=== PATIENT | female | born 1985 | race Caucasian/White ===

== ENCOUNTER 2020-02-02 09:28 | Emergency (ER) | payer SELFPAY ==
[~2020-02-02] VITALS: Ht 149.9 cm; Wt 43.0 kg
--- NOTE | 2020-02-02 10:06 | PHYS DOC ---
Past Medical History Past Medical History: Other Additional Past Medical Histor: ADHD Past Surgical History: , Other Additional Past Surgical Histo: ABD/PELVIC MESH?? PT POOR HISTORIAN Smoking Status: Current Every Day Smoker Additional Information: "3 PACKS A DAY" Alcohol Use: Occasionally Additional Information: "A BEER EVERY 4 DAYS" General Adult EDM: Chief Complaint: HAND PROBLEM HPI: HPI: Patient is a 34 year old female who presents with a 2-day history of right finger pain and swelling. Patient denies any history of trauma. Patient denies measurable fever. Patient has had history of methamphetamine abuse but denies shooting into her fingers. Patient has also dysuria and burning with urination. Pain is worse with range of motion and better with rest. Review of Systems: Review of Systems: Constitutional: Denies fever or chills. [] Eyes: Denies change in visual acuity. [] HENT: Denies nasal congestion or sore throat. [] Respiratory: Denies cough or shortness of breath. [] Cardiovascular: Denies chest pain or edema. [] GI: Denies abdominal pain, nausea, vomiting, bloody stools or diarrhea. [] : Complains of dysuria Musculoskeletal: Denies back pain but has right ring finger pain Integument: Denies rash. [] Neurologic: Denies headache, focal weakness or sensory changes. [] Endocrine: Denies polyuria or polydipsia. [] Lymphatic: Denies swollen glands. [] Psychiatric: Denies depression or anxiety. [] Heart Score: Risk Factors: Risk Factors: DM, Current or recent (<one month) smoker, HTN, HLP, family hi story of CAD, obesity. Risk Scores: Score 0 - 3: 2.5% MACE over next 6 weeks - Discharge Home Score 4 - 6: 20.3% MACE over next 6 weeks - Admit for Clinical Observation Score 7 - 10: 72.7% MACE over next 6 weeks - Early Invasive Strategies Allergies: Allergies: Allergies Coded Allergies Type Severity Reaction Last Updated Verified No Known Drug Allergies 02/02/20 No Physical Exam: PE: Constitutional: Disheveled, no acute distress, non-toxic appearance. [] HENT: Normocephalic, atraumatic, bilateral external ears normal, no trismus, nose normal. [] Eyes: PERRLA, EOMI, conjunctiva normal, no discharge. [] Neck: Normal range of motion, no tenderness, supple, no stridor. [] Cardiovascular:Heart rate regular rhythm, peripheral pulses intact, cap refill brisk Lungs & Thorax: Bilateral breath sounds clear, no respiratory distress Abdomen: Bowel sounds normal, soft, no tenderness, no masses, no pulsatile masses. [] Skin: Warm, dry, no erythema, no rash. [] Back: No tenderness, no CVA tenderness. [] Extremities: Blisters to the middle phalanx of the dorsum of the right ring finger with mild associated swelling distally. Cap refill brisk, neurovascular intact distally. Neurologic: Alert and oriented X 3, normal motor function, normal sensory function, no focal deficits noted. [] Psychologic: Affect normal, judgement normal, mood normal. [] Current Patient Data: Vital Signs: Vital Signs Date Time Temp Pulse Resp B/P (MAP) Pulse Ox O2 Delivery O2 Flow Rate FiO2 02/02/20 09:44 98.4 99 20 150/92 (111) 99 Room Air 98.4 EKG: EKG: [] Radiology/Procedures: Radiology/Procedures: [][facility] [address] [place] [address] IMAGING REPORT Signed PATIENT: MATT GALINDO ACCOUNT: [id number] : 1985 LOCATION: ER AGE: 34 SEX: F EXAM STATUS: PRE ER ORD. PHYSICIAN: ZAID MEDLEY MD REASON: right 4th finger swelling, possible metal inside PROCEDURE: HAND RIGHT 3V Three-view right hand study Clinical indications: Fourth finger swelling. FINDINGS: Diffuse soft tissue swelling of the fourth digit is seen. No acute fracture or dislocation or lytic process is evident. No metallic or radiopaque foreign body is evident. IMPRESSION: No acute osseous abnormality. Electronically signed by: Adama Figueroa MD (02/02/2020 10:51 AM) [id number] DICTATED and SIGNED BY: ADAMA FIGUEROA MD DATE: 02/02/20 1051 Course & Med Decision Making: Course & Med Decision Making Pertinent Labs and Imaging studies reviewed. (See chart for details) [] 34-year-old female arrives via EMS with right ring finger pain. There is some swelling noted primarily on the middle phalanx on the dorsal side. No evidence of flexor tenosynovitis. X-ray was negative for fracture or foreign bodies. Patient also has UTI symptoms. Patient was placed on Bactrim to cover skin infection as well as UTI. Discussed with patient returning if symptoms worsen and discussed with symptoms of flexor tenosynovitis. There is no drainable abscess at this time. Dragon Disclaimer: Dragon Disclaimer: This electronic medical record was generated, in whole or in part, using a voice recognition dictation system. Departure Departure Impression: Primary Impression: Cellulitis of right ring finger Disposition: HOME, SELF-CARE Condition: STABLE Referrals: JOE MCINTYRE II, MD 2-3 DAYS Patient Instructions: Cellulitis Additional Instructions: EMERGENCY DEPARTMENT GENERAL DISCHARGE INSTRUCTIONS THANK YOU for coming to [facility] Emergency Department (ED) today and trusting us with your care. We trust that you had a positive experience in our Emergency Department. If you wish to speak to the department Management you can contact the fire department battalion chief at . YOUR FOLLOW UP INSTRUCTIONS ARE FOLLOWS: Do you have a private doctor? If you do not have a private doctor, please ask for a resource list of physicians or clinics that may be able to assist you with follow up care. The Emergency Physician has interpreted your x-rays. The X-ray specialist will also review them. If there is a change in the findings you will be notified in 48 hours when at all possible. A lab test or lab culture may have been done, your results will be reviewed and you will be notified if you need a change in treatment. ADDITIONAL INSTRUCTIONS AND INFORMATION Your care today has been supervised by a physician who is specially trained in emergency care. Many problems require more than one evaluation for a complete diagnosis and treatment. We recommend that you schedule your follow up appointment as recommended to ensure complete treatment of your illness or injury. If you are unable to obtain follow up care and continue to have a problem, or if your condition worsens we recommend that you return to the ED. We are not able to safely determine your condition over the phone nor are we able to give sound medical advice over the phone. For these safety reasons, if you call for medical advice we will ask you to come to the ED for further evaluation If you have any questions regarding these discharge instructions please call the ED at . SAFETY INFORMATION In the interest of safety, wellness, and injury prevention; we encourage you to wear your seatbelt, if you smoke; quit smoking, and we encourage your family to use protective helmet for bicycling and other sporting events that present an increased risk for head injury. IF YOUR SYMPTOMS WORSEN OR NEW SYMPTOMS DEVELOP, OR YOU HAVE CONCERNS ABOUT YOUR CONDITION; OR IF YOUR CONDITION WORSENS WHILE YOU ARE WAITING FOR YOUR FOLLOW UP APPOINTMENT; EITHER CONTACT YOUR PRIMARY CARE DOCTOR, THE PHYSICIAN WHOSE NAME AND NUMBER YOU WERE GIVEN, OR RETURN TO THE ED IMMEDIATELY. Return to the ER or the nearest ER if the swelling in the right ring finger becomes worse or progresses into the hand Scripts Sulfamethoxazole/Trimethoprim (BACTRIM DS TABLET) 1 Each Tablet 1 TAB PO BID for 10 Days, #20 TAB 0 Refills Prov: ZAID MEDLEY MD 02/02/20 Justicifation of Admission Dx: Justifications for Admission: Justification of Admission Dx: N/A ZAID MEDLEY MD Feb 02, 2020 10:06
[2020-02-02] MEDS ORDERED: DIPH,PERTUSS(ACELL),TET VAC/PF 0.5 ML SYRINGE. VAX IM ONE (10:15)
--- NOTE | 2020-02-02 10:54 | RAD ---
Three-view right hand study Clinical indications: Fourth finger swelling. FINDINGS: Diffuse soft tissue swelling of the fourth digit is seen. No acute fracture or dislocation or lytic process is evident. No metallic or radiopaque foreign body is evident. IMPRESSION: No acute osseous abnormality. Electronically signed by: Jose Figueroa MD (02/02/2020 10:51 AM) [id number]
[2020-02-02 11:10] LABS: BILIRUBIN,URINE NEGATIVE (NEG); CLARITY,URINE CLOUDY; COLOR,URINE YELLOW; NITRITE,URINE NEGATIVE (NEG); PH,URINE 7.5 (<5.0-8.0); PROTEIN,URINE NEGATIVE (NEG-TRACE)
[2020-02-02 11:24] LABS: BACTERIA,URINE FEW /HPF (0-FEW); SQUAMOUS EPITHELIAL CELL,UR MANY /LPF; TRICHOMONAS,URINE PRESENT
[2020-02-02] MEDS ORDERED: SULF1TAB24 PO (12:33)
[2020-02-02 13:01] VITALS: BP 141/84
== END 2020-02-02 13:04 | disposition home or self-care (01) ==
LOC: ER 09:28
DX: B00.89 Other herpesviral infection (principal); R30.0 Dysuria; M79.644 Pain in right finger(s); F17.200 Nicotine dependence, unspecified, uncomplicated; Z98.890 Other specified postprocedural states
CPT/HCPCS: 73130; 81001; 81025; 87086; 90471; 90715; 99284

== ENCOUNTER 2020-02-06 15:53 | Emergency (ER) | payer SELFPAY ==
[~2020-02-06] VITALS: Ht 142.2 cm; Wt 40.0 kg
[~2020-02-06 15:53] MED LIST: SULF1TAB24 PO
[2020-02-06] MEDS ORDERED: NORMAL SALINE IV SCH (16:48)
[2020-02-06] MEDS ORDERED: VANCOMYCIN PER PHARMACY MC ONE (17:00)
[2020-02-06] MEDS ORDERED: MORPHINE SULFATE 4 MG/ML VIAL. IV/SQ PRN (17:00)
[2020-02-06] MEDS ORDERED: PIPERACILLIN/TAZOBACTAM 4.5 GM in IV NORMAL SALINE 100ML 100 ML IV ONE (17:00)
[2020-02-06] MEDS ORDERED: VANCOMYCIN 1 GM in IV NORMAL SALINE 250ML 250 ML IV ONE (17:00)
[2020-02-06 17:15] LABS: BASO # 0.1 x10^3/uL (0.0-0.2); BASO % 1 % (0-3); EOS # 0.2 x10^3/uL (0.0-0.7); EOS % 2 % (0-3); HEMATOCRIT 40.4 % (36.0-47.0); HEMOGLOBIN 13.8 g/dL (12.0-15.5); LYMPH # 1.2 x10^3/uL (1.0-4.8); LYMPH % 12 % (24-48); MEAN CORPUSCULAR HEMOGLOBIN 32 pg (25-35); MEAN CORPUSCULAR HGB CONC 34 g/dL (31-37); MEAN CORPUSCULAR VOLUME 94 fL (79-100); MONO # 0.8 x10^3/uL (0.0-1.1); MONO % 8 % (0-9); NEUT # 7.8 x10^3/uL (1.8-7.7); NEUT % 78 % (31-73); PLATELET COUNT 272 x10^3/uL (140-400); RED BLOOD COUNT 4.28 x10^6/uL (3.50-5.40); RED CELL DISTRIBUTION WIDTH 12.9 % (11.5-14.5)
[2020-02-06 17:32] LABS: CALCIUM 9.5 mg/dL (8.5-10.1); CREATININE 0.9 mg/dL (0.6-1.0); GFR 70.8; POTASSIUM 4.1 mmol/L (3.5-5.1)
[2020-02-06 17:46] LABS: ALBUMIN 3.9 g/dL (3.4-5.0); TOTAL BILIRUBIN 0.7 mg/dL (0.2-1.0); TOTAL PROTEIN 7.8 g/dL (6.4-8.2)
--- NOTE | 2020-02-06 17:46 | RAD ---
Exam: Right finger 3 views INDICATION: Ring finger infection TECHNIQUE: Frontal, lateral and oblique views of the right fourth digit Comparisons: None FINDINGS: Soft tissue swelling at the fourth digit. Bone mineralization is normal. No acute or healed fractures. Joint spaces are well-maintained. IMPRESSION: Diffuse soft tissue swelling at the fourth digit without underlying osseous abnormality. Electronically signed by: Torito Luo MD (02/06/2020 5:43 PM) [id number]
--- NOTE | 2020-02-06 19:07 | PHYS DOC ---
Past Medical History Past Medical History: Other Additional Past Medical Histor: ADHD, "I HAVE HAD DIALYSIS BEFORE IN MY GROIN". BROKEN HIP (RAGHAV SANTOS APRN) Past Surgical History: , Other Additional Past Surgical Histo: ABD/PELVIC MESH? HIP SURGERY (RAGHAV SANTOS APRN) Smoking Status: Current Every Day Smoker Alcohol Use: Occasionally (RAGHAV SANTOS APRN) General Adult EDM: Chief Complaint: FINGER INJURY HPI: HPI: Patient is a 34 year old female who presents to the ED today to be evaluated for right ring finger infection that began 5 days ago. Patient reports being seen in the ED and was given prescription for Bactrim. She states she did not fill the prescription. Patient goes into this psychotic phase where she starts talking about being a phoenix, wanting a test. 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 She wonders around stating we should have been given IV antibiotics last time she was in the ED. She continues to wander around with a flight of ideas some of them completely irrelevant. She admits to using methamphetamines. She states she used a needle and opened up a blister that was on the right middle finger. (RAGHAV SANTOS APRN) Review of Systems: Review of Systems: constitutional: Denies fever or chills. [] Eyes: Denies change in visual acuity. [] HENT: Denies nasal congestion or sore throat. [] Respiratory: Denies cough or shortness of breath. [] Cardiovascular: Denies chest pain or edema. [] GI: Denies abdominal pain, nausea, vomiting, bloody stools or diarrhea. [] : Denies dysuria. [] Musculoskeletal: Denies back pain or joint pain. [] Integument: Reports right ring finger infection Neurologic: Denies headache, focal weakness or sensory changes. [] Psychiatric: Denies depression or anxiety. [] (RAGHAV SANTOS APRN) Heart Score: Risk Factors: Risk Factors: DM, Current or recent (<one month) smoker, HTN, HLP, family history of CAD, obesity. Risk Scores: Score 0 - 3: 2.5% MACE over next 6 weeks - Discharge Home Score 4 - 6: 20.3% MACE over next 6 weeks - Admit for Clinical Observation Score 7 - 10: 72.7% MACE over next 6 weeks - Early Invasive Strategies (RAGHAV SANTOS LITHOGRAPHY CONTACT WORKER) Current Medications: Current Medications Medications (Trade) Dose Ordered Sig/[facility] Start Time Stop Time Status Last Admin Dose Admin Morphine Sulfate (Morphine Sulfate) 4 mg PRN Q15MIN PRN 02/06/20 17:00 02/07/20 16:59 Piperacillin Sod/ Tazobactam Sod 4.5 gm/Sodium Chloride 100 ml @ 200 mls/hr 1X ONCE 02/06/20 17:00 02/06/20 17:29 DC 02/06/20 17:54 200 MLS/HR Sodium Chloride 1,200 ml @ 1,200 mls/hr Q1H 02/06/20 16:48 02/06/20 17:54 1,200 MLS/HR Vancomycin HCl (Vanco Per Pharmacy) 1 each 1X ONCE 02/06/20 17:00 02/06/20 17:01 DC Vancomycin HCl 1 gm/Sodium Chloride 250 ml @ 250 mls/hr 1X ONCE 02/06/20 17:00 02/06/20 17:59 DC 02/06/20 17:00 250 MLS/HR (RAGHAV SANTOS LITHOGRAPHY CONTACT WORKER) Allergies: Allergies: Allergies Coded Allergies Type Severity Reaction Last Updated Verified No Known Drug Allergies 02/02/20 No (RAGHAV SANTOS LITHOGRAPHY CONTACT WORKER) Physical Exam: PE: Constitutional: Well developed, well nourished, no acute distress, non-toxic appearance. [] HENT: Normocephalic, atraumatic, bilateral external ears normal, oropharynx moist, no oral exudates, nose normal. [] Eyes: PERRLA, EOMI, conjunctiva normal, no discharge. [] Neck: Normal range of motion, no tenderness, supple, no stridor. [] Cardiovascular:Heart rate regular rhythm, no murmur [] Lungs & Thorax: Bilateral breath sounds clear to auscultation [] Abdomen: Bowel sounds normal, soft, no tenderness, no masses, no pulsatile masses. [] Skin: Warm, dry, right ring finger middle phalanx with a blister that has been o pened up. Multiple needle sticks can be seen over the finger blister. There is surrounding cellulitis to this region with a blister as well as cellulitis today dorsal aspect of the finger. Adequate ulnar sensation to the right ring finger. Patient able to flex and extend the right ring finger with no issues. No signs of flexor/extensor tensovitis. Back: No tenderness, no CVA tenderness. [] Extremities: No tenderness, no cyanosis, no clubbing, ROM intact, no edema. [] Neurologic: Alert and oriented X 3, normal motor function, normal sensory function, no focal deficits noted. [] Psychologic: Flat affect (MUTUNGA,RAGHAV LITHOGRAPHY CONTACT WORKER) Current Patient Data: Labs: Laboratory Tests Test 02/06/20 17:05 White Blood Count 10.0 x10^3/uL (4.0-11.0) Red Blood Count 4.28 x10^6/uL (3.50-5.40) Hemoglobin 13.8 g/dL (12.0-15.5) Hematocrit 40.4 % (36.0-47.0) Mean Corpuscular Volume 94 fL (79-100) Mean Corpuscular Hemoglobin 32 pg (25-35) Mean Corpuscular Hemoglobin Concent 34 g/dL (31-37) Red Cell Distribution Width 12.9 % (11.5-14.5) Platelet Count 272 x10^3/uL (140-400) Neutrophils (%) (Auto) 78 % (31-73) H Lymphocytes (%) (Auto) 12 % (24-48) L Monocytes (%) (Auto) 8 % (0-9) Eosinophils (%) (Auto) 2 % (0-3) Basophils (%) (Auto) 1 % (0-3) Neutrophils # (Auto) 7.8 x10^3/uL (1.8-7.7) H Lymphocytes # (Auto) 1.2 x10^3/uL (1.0-4.8) Monocytes # (Auto) 0.8 x10^3/uL (0.0-1.1) Eosinophils # (Auto) 0.2 x10^3/uL (0.0-0.7) Basophils # (Auto) 0.1 x10^3/uL (0.0-0.2) Sodium Level 140 mmol/L (136-145) Potassium Level 4.1 mmol/L (3.5-5.1) Chloride Level 102 mmol/L (98-107) Carbon Dioxide Level 30 mmol/L (21-32) Anion Gap 8 (6-14) Blood Urea Nitrogen 14 mg/dL (7-20) Creatinine 0.9 mg/dL (0.6-1.0) Estimated GFR (Cockcroft-Gault) 70.8 BUN/Creatinine Ratio 16 (6-20) Glucose Level 104 mg/dL (70-99) H Lactic Acid Level 1.4 mmol/L (0.4-2.0) Calcium Level 9.5 mg/dL (8.5-10.1) Total Bilirubin 0.7 mg/dL (0.2-1.0) Aspartate Amino Transferase (AST) 15 U/L (15-37) Alanine Aminotransferase (ALT) 18 U/L (14-59) Alkaline Phosphatase 81 U/L (46-116) Total Protein 7.8 g/dL (6.4-8.2) Albumin 3.9 g/dL (3.4-5.0) Albumin/Globulin Ratio 1.0 (1.0-1.7) Procalcitonin < 0.10 ng/mL (0.00-0.10) Laboratory Tests 02/06/20 17:05 Laboratory Tests 02/06/20 17:05 Vital Signs: Vital Signs Date Time Temp Pulse Resp B/P (MAP) Pulse Ox O2 Delivery O2 Flow Rate FiO2 02/06/20 16:25 98.3 97 16 147/81 (103) 100 Room Air 98.3 (RAGHAV SANTOS APRN) EKG: EKG: [] (RAGHAV SANTOS APRN) Radiology/Procedures: Radiology/Procedures: []PROCEDURE: FINGER(S) RIGHT Exam: Right finger 3 views INDICATION: Ring finger infection TECHNIQUE: Frontal, lateral and oblique views of the right fourth digit Comparisons: None FINDINGS: Soft tissue swelling at the fourth digit. Bone mineralization is normal. No acute or healed fractures. Joint spaces are well-maintained. IMPRESSION: Diffuse soft tissue swelling at the fourth digit without underlying osseous abnormality. Electronically signed by: Torito Enamorado MD (02/06/2020 5:43 PM) [id number] DICTATED and SIGNED BY: TORITO ENAMORADO MD DATE: 02/06/20 174 (RAGHAV SANTOS APRN) Course & Med Decision Making: Course & Med Decision Making Pertinent Labs and Imaging studies reviewed. (See chart for details) This is a 34-year-old female patient presenting to the ED today with right ring finger infection that began 5 days ago, she was seen in the ED 5 days ago given prescription for Bactrim, she did not fill it. He presents today appearing very psychotic with flight of ideas see HPI. I sent Ev from the PAT team to talk to the patient, patient continues to have flight of ideas and refusing help. She is not suicidal or homicidal ideation. She was given resources. Right ring finger x-rays interpreted by radiologist are negative for any acute findings, CBC CMP, lactic with no acute findings. Patient was given IV antibiotics in the ED including Zosyn and vancomycin for her infection. She was discharged with cephalexin, she has a prescription for Bactrim which she did not fill she was requested to fill the bactrim RX. D/c to home. (RAGHAV SANTOS APRN) Dragon Disclaimer: Dragon Disclaimer: This electronic medical record was generated, in whole or in part, using a voice recognition dictation system. (RAGHAV SANTOS APRN) Departure Departure Impression: Primary Impression: Cellulitis, finger Qualified Codes: L03.011 - Cellulitis of right finger Additional Impression: Psychosis Qualified Codes: F29 - Unspecified psychosis not due to a substance or known physiological condition Disposition: HOME, SELF-CARE Condition: STABLE Referrals: NO PCP (PCP) JOE MCINTYRE II, MD follow up in the course of this week Patient Instructions: Cellulitis, [id number] Additional Instructions: You have infection to your right ring finger. Keep the area clean and dry. Take the prescribed antibiotics as well as the one you were given 5 days ago until completed. Follow-up with your doctor in 1 to 2 weeks. Scripts Cephalexin (CEPHALEXIN) 500 Mg Tablet 1 TAB PO TID, #30 TAB Prov: RAGHAV SANTOS APRN 02/06/20 Justicifation of Admission Dx: Justifications for Admission: Justification of Admission Dx: N/A (RAGHAV SANTOS APRN) Attending Signature Attending Signature I have reviewed the PA/STICKER HAND's note and plan of care. I was available for consultation as needed during the patient's visit in the emergency department. I agree with the clinical impression, plan, and disposition. (KATY RODRIGEZ DO) RAGHAV SANTOS APRN Feb 06, 2020 19:07 KATY RODRIGEZ DO Feb 07, 2020 01:56
[2020-02-06] MEDS ORDERED: CEPH500T PO (19:10)
[2020-02-06 19:44] VITALS: BP 165/77
== END 2020-02-06 19:47 | disposition home or self-care (01) ==
LOC: ER 15:53
DX: L03.011 Cellulitis of right finger (principal); R20.2 Paresthesia of skin; F29 Unspecified psychosis not due to a substance or known physiological condition; F15.90 Other stimulant use, unspecified, uncomplicated; F90.9 Attention-deficit hyperactivity disorder, unspecified type; F17.200 Nicotine dependence, unspecified, uncomplicated; Z98.890 Other specified postprocedural states
CPT/HCPCS: 36415; 73140; 80053; 83605; 84145; 85025; 87040; 96365; 96366; 96368; 99284; J2543; J3370; J7030; J7050